=== PATIENT | female | born 1940 | race Caucasian/White ===

== ENCOUNTER 2022-09-12 11:58 | Observation (INO) | payer OTHER ==
[~2022-09-12] VITALS: Ht 152.4 cm; Wt 67.6 kg
[2022-09-12] MEDS ORDERED: MORPHINE SULFATE INJ 2 MG/ml SYRG IV ONE (12:15)
[2022-09-12 12:37] LABS: Basophils # (auto) 0.1 10 ^3/uL (0-0.2); Basophils % (auto) 1.1 % (0.0-2.0); Eosinophils # (auto) 0.2 10 ^3/uL (0-0.8); Eosinophils % (auto) 2.9 % (0.0-7.0); Hematocrit 32.9 % (36.0-46.0); Hemoglobin 10.9 g/dL (12.2-16.2); Lymphocytes # (auto) 2.4 10 ^3/uL (0.4-5.4); Lymphocytes % (auto) 32.1 % (10.0-50.0); Mean Corpuscular Hemoglobin 29.6 pg (28.0-32.0); Mean Corpuscular Volume 89.6 fL (80.0-100.0); Monocytes # (auto) 0.8 10 ^3/uL (0-1.3); Monocytes % (auto) 10.7 % (0.0-12.0); Neutrophils # (auto) 3.9 10 ^3/uL (1.6-8.6); Neutrophils % (auto) 53.2 % (37.0-80.0); Nucleated Red Blood Cells % 0.1 %; Red Blood Cells 3.68 10^6/uL (4.0-5.20); Red Cell Distribution Width 13.9 % (11.8-14.3); White Blood Cell 7.4 10^3/uL (4.4-10.8)
[2022-09-12 13:14] LABS: Albumin 3.7 g/dL (3.4-5.0); Potassium 3.2 mmol/L (3.5-5.1)
[2022-09-12 13:19] LABS: BUN/Creatinine Ratio 32.3; Bilirubin, Total 0.6 mg/dL (0.2-1.0); Total Protein 6.7 g/dL (6.4-8.2)
[2022-09-12 15:46] LABS: Urine Bacteria MOD /hpf (None Seen); Urine Blood Negative /uL (Negative); Urine Specific Gravity 1.006 (1.001-1.035); Urine WBC 1 /hpf (0 - 5)
[2022-09-12] MEDS ORDERED: ATOR10TA52 PO (22:12)
[2022-09-12] MEDS ORDERED: LEVO75TA6 PO (22:12)
[2022-09-12] MEDS ORDERED: LOSA-39 PO (22:12)
[2022-09-12] MEDS ORDERED: TRAZ50TA2 PO (22:12)
[2022-09-12] MEDS ORDERED: HYDR25TA5 PO (22:12)
[2022-09-12] MEDS ORDERED: IOHEXOL 350 MG/ML 100ML IJ ONE (23:09)
[2022-09-13] MEDS ORDERED: hydrALAZINE HCL 20 MG/ML VL IV PRN (00:15)
[2022-09-13] MEDS ORDERED: ACETAMINOPHEN 325 MG TAB PO PRN (00:15)
[2022-09-13] MEDS ORDERED: ONDANSETRON HCL 4 MG/2 ML VIAL IV PRN (00:15)
[2022-09-13] MEDS ORDERED: POTASSIUM EFFERVESENT TAB 25 MEQ PO ONE (00:15)
[2022-09-13] MEDS ORDERED: MORPHINE SULFATE INJ 2 MG/ml SYRG IV PRN (00:15)
[2022-09-13] MEDS ORDERED: NITROGLYCERIN 0.4 MG SL TAB SL PRN (00:15)
[2022-09-13 00:41] VITALS: BP 119/48
[2022-09-13] MEDS ORDERED: ALBUTEROL MEDNEB 2.5 mg/3ml NEB ONE ×4 (06:09→23:49)
[2022-09-13] MEDS: ALBUTEROL SULF 2.5 MG/0.5ML(0.5%) NEB SOLN NEB SCH ×4 (06:17→23:51)
[2022-09-13] MEDS: IPRATROPIUM BROM 0.5 MG/2.5ML INH SOL NEB SCH ×4 (06:17→23:51)
[2022-09-13 06:36] LABS: Basophils # (auto) 0.1 10 ^3/uL (0-0.2); Basophils % (auto) 1.2 % (0.0-2.0); Eosinophils # (auto) 0.2 10 ^3/uL (0-0.8); Eosinophils % (auto) 2.8 % (0.0-7.0); Hematocrit 34.3 % (36.0-46.0); Hemoglobin 11.2 g/dL (12.2-16.2); Lymphocytes # (auto) 1.7 10 ^3/uL (0.4-5.4); Lymphocytes % (auto) 26.1 % (10.0-50.0); Mean Corpuscular Hemoglobin 29.6 pg (28.0-32.0); Mean Corpuscular Hgb Conc. 32.6 g/dL (32.0-36.0); Mean Corpuscular Volume 90.8 fL (80.0-100.0); Monocytes # (auto) 0.7 10 ^3/uL (0-1.3); Monocytes % (auto) 10.8 % (0.0-12.0); Neutrophils # (auto) 3.8 10 ^3/uL (1.6-8.6); Neutrophils % (auto) 59.1 % (37.0-80.0); Nucleated Red Blood Cells % 0.1 %; Red Blood Cells 3.78 10^6/uL (4.0-5.20); Red Cell Distribution Width 13.9 % (11.8-14.3); White Blood Cell 6.5 10^3/uL (4.4-10.8)
[2022-09-13 06:52] LABS: Calcium 9.2 mg/dL (8.5-10.1); Potassium 3.3 mmol/L (3.5-5.1)
[2022-09-13] MEDS ORDERED: ADENOSINE 53 MG in GIVE UN-DILUTED 0 ML IV STA (09:01)
[2022-09-13] MEDS ORDERED: PANTOPRAZOLE 40 MG/10 ML VIAL INJ IV SCH (10:00)
[2022-09-13] MEDS: ENOXAPARIN SOD 40 MG/0.4 ML SYRINGE SC SCH (10:00)
[2022-09-13] MEDS: ATORVASTATIN 20 MG TAB PO SCH (10:00)
[2022-09-13 10:49] VITALS: BP 146/98
[2022-09-13] MEDS: DOCUSATE SOD 100 MG CAP PO PRN ×2 (17:39→17:55)
[2022-09-13 20:51] VITALS: BP 105/52
[2022-09-13] MEDS ORDERED: HYDROcodone-ACET 5/325MG TAB PO PRN (21:15)
[2022-09-13] MEDS ORDERED: ASPI1TAB20 PO (21:41)
[2022-09-13 22:00] VITALS: BP 105/52
[2022-09-14] MEDS: ALBUTEROL SULF 2.5 MG/0.5ML(0.5%) NEB SOLN NEB SCH ×3 (00:03→12:30)
[2022-09-14] MEDS: IPRATROPIUM BROM 0.5 MG/2.5ML INH SOL NEB SCH ×3 (00:03→12:30)
[2022-09-14 05:00] VITALS: BP 119/52
[2022-09-14] MEDS ORDERED: ALBUTEROL MEDNEB 2.5 mg/3ml NEB ONE ×2 (06:18→12:26)
[2022-09-14] MEDS: ATORVASTATIN 20 MG TAB PO SCH (08:01)
[2022-09-14] MEDS: ENOXAPARIN SOD 40 MG/0.4 ML SYRINGE SC SCH (08:02)
[2022-09-14 09:00] VITALS: BP 138/75
[2022-09-14 13:00] VITALS: BP 121/42
[2022-09-14 14:35] VITALS: BP 121/42
== END 2022-09-14 16:00 | disposition home or self-care (01) ==
LOC: ER 11:58 → EDBD 11:58 → TELE 09-13 00:36 → TELE-EAST 09-13 20:48
PROVIDERS: ADMIT Nurse Practitioner Family; ATTEND Nurse Practitioner Family
DX: R07.89 Other chest pain (principal); E87.6 Hypokalemia; J38.2 Nodules of vocal cords; I10 Essential (primary) hypertension; R00.1 Bradycardia, unspecified; E78.5 Hyperlipidemia, unspecified; E03.9 Hypothyroidism, unspecified; Z79.899 Other long term (current) drug therapy; Z20.822 Contact with and (suspected) exposure to COVID-19
CPT/HCPCS: 36415; 70491; 71045; 71275; 78452; 80048; 80053; 81001; 83880; 84484; 85025; 85379; 87426; 93005; 93017; 93306; 94640; 96372; 96374; 99285; A9500; G0378; J0153; J1650; J2405; J7644; Q9967